=== PATIENT | male | born 1985 | race African-American/Black ===

== ENCOUNTER 2020-07-20 04:43 | Emergency (ER) | payer SELFPAY ==
[2020-07-20] MEDS ORDERED: TORAdol 30 mg Injection IM ONE (05:19)
[2020-07-20] MEDS ORDERED: OXYCODONE-ACETAMINOPHEN 10-325 PO STA (05:20)
[2020-07-20] MEDS ORDERED: TORAdol 30 mg Injection ONE (05:20)
[2020-07-20] MEDS ORDERED: OXYCODONE-ACETAMINOPHEN 10-325 ONE (05:21)
--- NOTE | 2020-07-20 05:27 | ERPHSYRPT ---
- History of Present Illness Time Seen by Provider: 07/20/20 05:11 Source: patient Exam Limitations: no limitations Patient Subjective Stated Complaint: pt states "I did some dumb shit and slipped on pavement." Triage Nursing Assessment: pt ambulated into the er; pt is axo x4; pt is thrashing around throwing himself around; c/o rt shoulder injury; pt states 10/10 pain; limited ROM to rt shoulder; no deformity present; good cap refill to RUE; strong radial pulse; pt states "it fells like something is poking around inside."; vitals wnl Physician History: 35 years old male presented in the ER with chief complaint of right shoulder pain after he slipped on pavement leading to fall onto right shoulder yesterday morning. Constant sharp shooting moderate to severe intensity pain with minimal movements, palpation around shoulder and partial relief with taking ibuprofen/being still. No numbness tingling or weakness in forearm/hand. Limited range of motion because of pain. No difficulty breathing or chest pain. No shortness of breath. Occurred: yesterday Method of Injury: fell Quality: sharpness Severity of Pain-Max: severe Severity of Pain-Current: moderate Extremities Pain Location: shoulder: right Modifying Factors: Worsens With: movement Associated Symptoms: none Allergies/Adverse Reactions: No Known Drug Allergies Allergy (Unverified 07/20/20 04:48) Hx Tetanus, Diphtheria Vaccination/Date Given: Yes Hx Influenza Vaccination/Date Given: Yes Hx Pneumococcal Vaccination/Date Given: Yes Immunizations Up to Date: Yes Travel Risk - International Travel Have you traveled outside of the country in past 3 weeks: No - Coronavirus Screening Are you exhibiting any of the following symptoms?: No Close contact with a COVID-19 positive Pt in past 14-21 Days: No - Vaccine Status Have you recieved a Covid-19 vaccination: No - Review of Systems Constitutional: No Symptoms Eyes: No Symptoms Ears, Nose, & Throat: No Symptoms Respiratory: No Symptoms Cardiac: No Symptoms Abdominal/Gastrointestinal: No Symptoms Genitourinary Symptoms: No Symptoms Musculoskeletal: Injury, Joint Pain Skin: No Symptoms Neurological: No Symptoms Psychological: No Symptoms Endocrine: No Symptoms Hematologic/Lymphatic: No Symptoms Immunological/Allergic: No Symptoms - Past Medical History Pertinent Past Medical History: No - Past Surgical History Past Surgical History: No - Social History Smoking Status: Current every day smoker Exposure to second hand smoke: Yes Drug Use: none Patient Lives Alone: No - Nursing Vital Signs Nursing Vital Signs: Initial Vital Signs Temperature 98.1 F 07/20/20 04:50 Pulse Rate 84 07/20/20 04:50 Respiratory Rate 20 07/20/20 04:50 Blood Pressure 124/87 07/20/20 04:50 O2 Sat by Pulse Oximetry 97 07/20/20 04:50 Pain Scale Pain Intensity 10 - Physical Exam General Appearance: no apparent distress, alert Eyes, Ears, Nose, Throat Exam: normal ENT inspection Neck Exam: normal inspection, non-tender, supple, full range of motion Cardiovascular/Respiratory Exam: chest non-tender, normal breath sounds, regular rate/rhythm Back Exam: normal inspection, normal range of motion Shoulder Exam: bone tenderness, limited ROM (Right shoulder because of pain.), pain, soft tissue tenderness, swelling Elbow/Forearm Exam: normal inspection, non-tender, no evidence of injury, normal ROM Wrist Exam: normal inspection, non-tender, no evidence of injury, normal ROM Hand Exam: normal inspection, non-tender Neuro/Tendon Exam: normal sensation, normal motor functions Mental Status Exam: alert, oriented x 3, cooperative Skin Exam: normal color SpO2 Interpretation: normal SpO2: 97 O2 Delivery: Room Air Ordered Tests: Medication Summary Discontinued Medications Generic Name Dose Route Start Last Admin Trade Name Zina PRN Reason Stop Dose Admin Ketorolac Tromethamine 30 mg 07/20/20 05:19 07/20/20 05:22 Toradol 30 Mg Injection IM 07/20/20 05:20 30 mg STAT ONE Administration Ketorolac Tromethamine Confirm 07/20/20 05:20 Toradol 30 Mg Injection Administered 07/20/20 05:21 Dose 30 mg .ROUTE .STK-MED ONE Oxycodone/Acetaminophen 1 tab 07/20/20 05:20 07/20/20 05:22 Oxycodone-Acetaminophen 10-325 PO 07/20/20 05:21 1 tab STAT STA Administration Oxycodone/Acetaminophen Confirm 07/20/20 05:21 Oxycodone-Acetaminophen 10-325 Administered 07/20/20 05:22 Dose 1 tab .ROUTE .STK-MED ONE - Progress Progress: improved Progress Note: 07/20/20 05:25 Given Toradol and Percocet for pain relief. No obvious fracture location noticed by me. Patient has intact passive range of motion. Intact distal neurovascular. I believe he has a sprain/contusion. Recommended NSAIDs, placed in a sling/immobilizer, recommended outpatient Ortho clinic follow-up. Counseled pt/family regarding: diagnosis, need for follow-up, rad results - Departure Departure Disposition: Home Clinical Impression: Acute pain of right shoulder due to trauma Condition: Stable Critical Care Time: No Referrals: DOCTOR,NO FAMILY [Primary Care Provider] - ORTHO - KAY BUTTS NP [NON-STAFF PHY W/O PRIVILEGES] - (1-2 days for reevaluation) Instructions: Shoulder Sprain (DC), Shoulder Fracture (DC) Additional Instructions: Take Tylenol/diclofenac for pain as needed. Follow-up with Ortho clinic for reevaluation. Return to ER for worsening pain/difficulty movement/difficulty breathing or chest pain. Prescriptions: Diclofenac Sodium 75 mg PO BID PRN 10 Days #20 tablet.dr ZAMORA Reason: Pain
[2020-07-20 05:37] VITALS: BP 121/73; PULSE 81
--- NOTE | 2020-07-20 08:58 | XRAY ---
Indication: Decreased range of motion following fall. Comparison: None 3 view right shoulder obtained. No bony, articular, or soft tissue abnormalities.
[2020-07-24 07:26] VITALS: O2SAT 97
== END 2020-07-20 05:44 | disposition home or self-care (01) ==
LOC: ED 04:43
DX: M25.511 Pain in right shoulder (principal); W01.198A Fall on same level from slipping, tripping and stumbling with subsequent striking against other object, initial encounter; Y93.89 Activity, other specified; Y92.488 Other paved roadways as the place of occurrence of the external cause; Y99.9 Unspecified external cause status
CPT/HCPCS: 73030; 96372; 99284; J1885; L3650; A9270-GY

== ENCOUNTER 2020-10-25 10:19 | Emergency (ER) | payer SELFPAY ==
[2020-10-25] MEDS ORDERED: Keppra 500 MG/5 ML ONE (10:28)
[2020-10-25] MEDS ORDERED: ZOFRAN ODT 4 MG PO ONE (10:30)
[2020-10-25] MEDS ORDERED: Sodium Chloride 0.9% 1000 ML 1,000 ML IV STA ×2 (10:30→12:39)
[2020-10-25] MEDS ORDERED: Keppra 500 MG/5 ML*** 1,000 MG in D5w 100ML Mini Bag 100 ML 100 ML IV ONE ×4 (10:30)
[2020-10-25] MEDS ORDERED: Ativan 2 MG/1 ML VIAL IV ONE (10:35)
[2020-10-25] MEDS ORDERED: Ativan 2 MG/1 ML VIAL ONE (10:36)
[2020-10-25 10:44] LABS: Absolute Neutrophil Ct (ANC) 3.52 (1.4-6.9); BASOPHIL % 0.4 % (0.0-0.4); Basophil (Absolute #) 0.02 (0-0.4); Eosinophil % 0.4 % (0.00-5.0); Eosinophil (Absolute #) 0.02 (0-0.5); Hematocrit 49.6 % (42-50); Hemoglobin 16.5 gm/dl (12.5-18.0); Lymphocyte (Absolute #) 1.08 (1.0-4.6); Lymphocytes % 21.9 % (24.0-44.0); Mean Cell Volume 98.2 fl (78-100); Mean Corpuscular Hemoglobin 32.7 pg (26-32); Mean Corpuscular Hgb Concent. 33.3 g/dl (32-36); Mean Platelet Volume 10.6 fl (7.5-11.0); Monocyte (Absolute #) 0.29 (0.0-1.3); Monocytes % 5.9 % (0.0-12.0); Neutrophil % 71.4 % (36.0-66.0); Platelet Count 157 K/mm3 (150-450); Red Blood Count 5.05 M/mm3 (4.1-5.6); Red Cell Distribution Width 14.3 % (11.5-14.0); White Blood Count 4.9 K/mm3 (4.0-10.5)
[2020-10-25 10:46] LABS: ALBUMIN 4.7 g/dL (3.5-5.0); ALKALINE PHOSPHATASE 111 U/L (38-126); ANION GAP 21.6 MEQ/L (5-15); BLOOD UREA NITROGEN 15 mg/dL (9-20); CHLORIDE 101 mmol/L (98-107); Calcium 9.5 mg/dL (8.4-10.2); Carbon Dioxide 22 mmol/L (22-30); Creatinine 1 0.95 mg/dL (0.66-1.25); EST GLOMERULAR FILTRATION RATE > 60.0 ML/MIN; Glucose 97 mg/dL (74-106); SGPT/ALT 453 U/L (0-50); SODIUM 140 mmol/L (137-145); Total Protein 8.4 g/dL (6.3-8.2)
[2020-10-25 10:51] LABS: SGOT/AST 809 U/L (17-59)
[2020-10-25] MEDS ORDERED: Zofran 4 MG/2 ML VIAL ONE (10:51)
[2020-10-25] MEDS ORDERED: Zofran 4 MG/2 ML VIAL IV STA (10:56)
[2020-10-25] MEDS ORDERED: Sodium Chloride 0.9% 1000 ML 1,000 ML ONE ×2 (10:58→12:48)
--- NOTE | 2020-10-25 12:55 | ERPHSYRPT ---
- History of Present Illness Time Seen by Provider: 10/25/20 10:30 Patient Subjective Stated Complaint: EMS states "He had a seizure and he does not have a history of them.". Pt states "I am not sure what happened to me." Triage Nursing Assessment: PT presented alert and oriented X 3, skin pwd. PT arrived via ambulance. Pt arrived with iv in place in left ac. PT stated he felt stiff. Pt trembling stating he is cold. Pt suddenly started to daze off and then stare straight ahead. Pt would not answer questions. this lasted approx 25 second. Physician History: 35 years old -[place] male with history of alcohol abuse is brought in the ER with chief complaint of seizure-like episode this morning. Patient does not have history of seizure. Per report patient was having shaking episode all over, lasted for couple minutes and improved. Patient is feeling confused tired afterwards and currently states she does not know why he is he getting stiff at times. While in the ER he is having some episodes of shaking but able to answer questions during that episode. Last drink was around midnight. Able to move all 4 extremities. Denies any chest pain, abdominal pain nausea or vomiting. No shortness of breath. Denies any headache. Denies any drug use. Timing/Duration: today, resolved prior to arrival Severity: moderate Deficits: no difficulties Baseline/Normal Cognition: alert oriented x 3 Current Cognition: alert oriented x 3 Baseline Gait: walks w/o assistance Associated Symptoms: fatigue, seizures Allergies/Adverse Reactions: No Known Drug Allergies Allergy (Verified 10/25/20 10:33) Home Medications: No Reportable Medications [No Reported Medications] 10/25/20 [History] Hx Tetanus, Diphtheria Vaccination/Date Given: Yes Hx Influenza Vaccination/Date Given: Yes Hx Pneumococcal Vaccination/Date Given: Yes Immunizations Up to Date: Yes Travel Risk - International Travel Have you traveled outside of the country in past 3 weeks: No (N) If Yes, where;: N - Coronavirus Screening Close contact with a COVID-19 positive Pt in past 14-21 Days: No - Vaccine Status Have you recieved a Covid-19 vaccination: No - Review of Systems Constitutional: Fatigue, Weakness Eyes: No Symptoms Ears, Nose, & Throat: No Symptoms Respiratory: No Symptoms Cardiac: No Symptoms Abdominal/Gastrointestinal: No Symptoms Genitourinary Symptoms: No Symptoms Musculoskeletal: Myalgias Skin: No Symptoms Neurological: Seizure Psychological: Alcohol Abuse, Anxiety Endocrine: No Symptoms Hematologic/Lymphatic: No Symptoms Immunological/Allergic: No Symptoms - Past Medical History Pertinent Past Medical History: No - Past Surgical History Past Surgical History: No - Social History Smoking Status: Current every day smoker How long have you smoked: 2 packs Exposure to second hand smoke: Yes Drug Use: none Patient Lives Alone: No - Nursing Vital Signs Nursing Vital Signs: Initial Vital Signs Temperature 97.5 F 10/25/20 10:20 Pulse Rate 93 H 10/25/20 10:20 Respiratory Rate 10/25/20 10:20 Blood Pressure 137/78 10/25/20 10:20 O2 Sat by Pulse Oximetry 98 10/25/20 10:20 Pain Scale Pain Intensity 0 - Sean Coma Scale Best Eye Response (Sean): (4) open spontaneously Best Verbal Response (Convoy): (5) oriented Best Motor Response (Convoy): (6) obeys commands Sean Total: 15 - Physical Exam General Appearance: no apparent distress, alert Eye Exam: bilateral eye: normal inspection, PERRL, EOMI Ears, Nose, Throat Exam: normal ENT inspection, TMs normal, moist mucous membranes Neck Exam: normal inspection, non-tender, supple, full range of motion Respiratory: normal breath sounds, lungs clear Cardiovascular: regular rate/rhythm, normal heart sounds Gastrointestinal: soft, normal bowel sounds, No tenderness Back Exam: normal inspection, normal range of motion Extremity Exam: normal inspection, normal range of motion, pelvis stable Mental Status: alert, oriented x 3, 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 Exam: normal hearing, normal speech, PERRL Coordination/Gait: normal finger to nose, normal cerebellar function Motor/Sensory: no motor deficit, no sensory deficit, no pronator drift, negative Babinski's sign DTR: bicep (R): 2+, bicep (L): 2+, knee (R): 2+, knee (L): 2+ Skin Exam: normal color SpO2 Interpretation: normal SpO2: 97 O2 Delivery: Room Air - Course EKG Interpreted by Me: RATE (83), Sinus Rhythm, NORMAL AXIS, NORMAL INTERVALS, Non-specific ST Changes Ordered Tests: Active Orders 24 hr Category Date Time Status AMA [Release AMA] OM.NOW Care 10/25/20 14:37 Active Surgery Attendant STAT Care 10/25/20 10:31 Active EKG-ER Only STAT Care 10/25/20 10:30 Active IV Insertion STAT Care 10/25/20 10:30 Active NPO (ED) STAT Care 10/25/20 10:30 Active POCT Glucose Check STAT Care 10/25/20 10:30 Active Pulse Oximetry (ED) STAT Care 10/25/20 10:30 Active Seizure Precautions -SCCHED STAT Care 10/25/20 10:30 Active CHEST 1 VIEW (PORTABLE) Stat Exams 10/25/20 10:31 Taken HEAD WITHOUT CONTRAST [CT] Stat Exams 10/25/20 10:31 Taken BLOOD CULTURE Stat Lab 10/25/20 10:45 Received CBC W DIFF Stat Lab 10/25/20 10:30 Completed CK (IN-HOUSE) [CK-Creatinine Phosphokinase] Stat Lab 10/25/20 10:30 Completed CMP Stat Lab 10/25/20 10:30 Completed ETHYL ALCOHOL Stat Lab 10/25/20 10:30 Completed Lactic Acid Stat Lab 10/25/20 10:45 Completed Lactic Acid Stat Lab 10/25/20 12:49 Completed MAGNESIUM Stat Lab 10/25/20 10:30 Completed TROPONIN Q3H Lab 10/25/20 10:30 Completed TROPONIN Q3H Lab 10/25/20 13:35 Received TROPONIN Q3H Lab 10/25/20 16:45 Ordered TROPONIN Q3H Lab 10/25/20 19:45 Ordered TROPONIN Q3H Lab 10/25/20 22:45 Ordered UA W/RFX UR CULTURE Stat Lab 10/25/20 10:30 Ordered Urine Triage Profile Stat Lab 10/25/20 10:30 Ordered Medication Summary Discontinued Medications Generic Name Dose Route Start Last Admin Trade Name Freq PRN Reason Stop Dose Admin Levetiracetam 1,000 mg/ 110 mls @ 220 mls/hr 10/25/20 10:30 10/25/20 10:30 Dextrose IV 10/25/20 10:59 220 mls/hr STAT ONE Administration Sodium Chloride 1,000 mls @ 999 mls/hr 10/25/20 10:30 10/25/20 12:06 Sodium Chloride 0.9% 1000 Ml IV 10/25/20 11:30 Infused .Q1H1M STA Infusion Levetiracetam 1,000 mg/ 110 mls @ 400 mls/hr 10/25/20 10:30 10/25/20 11:39 Dextrose IV 10/25/20 10:46 Not Given STAT ONE Sodium Chloride Confirm 10/25/20 10:58 Sodium Chloride 0.9% 1000 Ml Administered 10/25/20 10:59 Dose 1,000 mls @ ud .ROUTE .STK-MED ONE Sodium Chloride 1,000 mls @ 999 mls/hr 10/25/20 12:39 10/25/20 13:53 Sodium Chloride 0.9% 1000 Ml IV 10/25/20 13:39 Infused .Q1H1M STA Infusion Sodium Chloride Confirm 10/25/20 12:48 Sodium Chloride 0.9% 1000 Ml Administered 10/25/20 12:49 Dose 1,000 mls @ ud .ROUTE .STK-MED ONE Levetiracetam Confirm 10/25/20 10:28 Keppra 500 Mg/5 Ml Administered 10/25/20 10:29 Dose 1,000 mg .ROUTE .STK-MED ONE Lorazepam 1 mg 10/25/20 10:35 10/25/20 10:42 Ativan 2 Mg/1 Ml Vial IV 10/25/20 10:36 1 mg STAT ONE Administration Lorazepam Confirm 10/25/20 10:36 Ativan 2 Mg/1 Ml Vial Administered 10/25/20 10:37 Dose 2 mg .ROUTE .STK-MED ONE Ondansetron HCl 4 mg 10/25/20 10:30 10/25/20 10:55 Zofran Odt 4 Mg PO 10/25/20 10:31 Not Given STAT ONE Ondansetron HCl Confirm 10/25/20 10:51 Zofran 4 Mg/2 Ml Vial Administered 10/25/20 10:52 Dose 4 mg .ROUTE .STK-MED ONE Ondansetron HCl 4 mg 10/25/20 10:56 10/25/20 10:57 Zofran 4 Mg/2 Ml Vial IV 10/25/20 10:57 4 mg STAT STA Administration Lab/Rad Data: Laboratory Result Diagrams 10/25/20 10:30 10/25/20 10:30 Laboratory Results 10/25/20 10/25/20 10/25/20 Range/Units 12:49 10:45 10:30 WBC (4.0-10.5) K/mm3 RBC (4.1-5.6) M/mm3 Hgb (12.5-18.0) gm/dl Hct (42-50) % MCV (78-100) fl MCH (26-32) pg MCHC (32-36) g/dl RDW (11.5-14.0) % Plt Count (150-450) K/mm3 MPV (7.5-11.0) fl Gran % (36.0-66.0) % Eos # (Auto) (0-0.5) Absolute Lymphs (auto) (1.0-4.6) Absolute Monos (auto) (0.0-1.3) Lymphocytes % (24.0-44.0) % Monocytes % (0.0-12.0) % Eosinophils % (0.00-5.0) % Basophils % (0.0-0.4) % Absolute Granulocytes (1.4-6.9) Basophils # (0-0.4) Sodium (137-145) mmol/L Potassium (3.5-5.1) mmol/L Chloride (98-107) mmol/L Carbon Dioxide (22-30) mmol/L Anion Gap (5-15) MEQ/L BUN (9-20) mg/dL Creatinine (0.66-1.25) mg/dL Estimated GFR ML/MIN Glucose (74-106) mg/dL Lactic Acid 2.0 4.2 H (0.4-2.0) Calcium (8.4-10.2) mg/dL Magnesium (1.6-2.3) mg/dL Total Bilirubin (0.2-1.3) mg/dL AST (17-59) U/L ALT (0-50) U/L Alkaline Phosphatase (38-126) U/L Creatine Kinase 219 H (55-170) U/L Troponin I (0.000-0.034) ng/mL Serum Total Protein (6.3-8.2) g/dL Albumin (3.5-5.0) g/dL Ethyl Alcohol (0-10) mg/dL 10/25/20 10/25/20 10/25/20 Range/Units 10:30 10:30 10:30 WBC (4.0-10.5) K/mm3 RBC (4.1-5.6) M/mm3 Hgb (12.5-18.0) gm/dl Hct (42-50) % MCV (78-100) fl MCH (26-32) pg MCHC (32-36) g/dl RDW (11.5-14.0) % Plt Count (150-450) K/mm3 MPV (7.5-11.0) fl Gran % (36.0-66.0) % Eos # (Auto) (0-0.5) Absolute Lymphs (auto) (1.0-4.6) Absolute Monos (auto) (0.0-1.3) Lymphocytes % (24.0-44.0) % Monocytes % (0.0-12.0) % Eosinophils % (0.00-5.0) % Basophils % (0.0-0.4) % Absolute Granulocytes (1.4-6.9) Basophils # (0-0.4) Sodium (137-145) mmol/L Potassium (3.5-5.1) mmol/L Chloride (98-107) mmol/L Carbon Dioxide (22-30) mmol/L Anion Gap (5-15) MEQ/L BUN (9-20) mg/dL Creatinine (0.66-1.25) mg/dL Estimated GFR ML/MIN Glucose (74-106) mg/dL Lactic Acid (0.4-2.0) Calcium (8.4-10.2) mg/dL Magnesium 1.6 (1.6-2.3) mg/dL Total Bilirubin (0.2-1.3) mg/dL AST (17-59) U/L ALT (0-50) U/L Alkaline Phosphatase (38-126) U/L Creatine Kinase (55-170) U/L Troponin I < 0.012 (0.000-0.034) ng/mL Serum Total Protein (6.3-8.2) g/dL Albumin (3.5-5.0) g/dL Ethyl Alcohol 68 H (0-10) mg/dL 10/25/20 10/25/20 Range/Units 10:30 10:30 WBC 4.9 (4.0-10.5) K/mm3 RBC 5.05 (4.1-5.6) M/mm3 Hgb 16.5 (12.5-18.0) gm/dl Hct 49.6 (42-50) % MCV 98.2 (78-100) fl MCH 32.7 H (26-32) pg MCHC 33.3 (32-36) g/dl RDW 14.3 H (11.5-14.0) % Plt Count 157 (150-450) K/mm3 MPV 10.6 (7.5-11.0) fl Gran % 71.4 H (36.0-66.0) % Eos # (Auto) 0.02 (0-0.5) Absolute Lymphs (auto) 1.08 (1.0-4.6) Absolute Monos (auto) 0.29 (0.0-1.3) Lymphocytes % 21.9 L (24.0-44.0) % Monocytes % 5.9 (0.0-12.0) % Eosinophils % 0.4 (0.00-5.0) % Basophils % 0.4 (0.0-0.4) % Absolute Granulocytes 3.52 (1.4-6.9) Basophils # 0.02 (0-0.4) Sodium 140 (137-145) mmol/L Potassium 4.0 (3.5-5.1) mmol/L Chloride 101 (98-107) mmol/L Carbon Dioxide 22 (22-30) mmol/L Anion Gap 21.6 H (5-15) MEQ/L BUN 15 (9-20) mg/dL Creatinine 0.95 (0.66-1.25) mg/dL Estimated GFR > 60.0 ML/MIN Glucose 97 (74-106) mg/dL Lactic Acid (0.4-2.0) Calcium 9.5 (8.4-10.2) mg/dL Magnesium (1.6-2.3) mg/dL Total Bilirubin 1.00 (0.2-1.3) mg/dL AST 809 H (17-59) U/L ALT 453 H (0-50) U/L Alkaline Phosphatase 111 (38-126) U/L Creatine Kinase (55-170) U/L Troponin I (0.000-0.034) ng/mL Serum Total Protein 8.4 H (6.3-8.2) g/dL Albumin 4.7 (3.5-5.0) g/dL Ethyl Alcohol (0-10) mg/dL - Progress Progress: improved Progress Note: 10/25/20 14:49 35 years old is evaluated for seizure episode at home. Was having some stiffening movement while in the ER but patient was awake alert and talking during episode. Given a loading dose of Keppra and fluid boluses. Initial work-up showed normal white count, renal functions but does have elevated lactate of 4.2 which improved after fluids to 2.0 and mildly elevated CK which are probably secondary to seizure episode earlier. Patient alcohol is 68 and is a heavy drinker. CT head is negative for any acute findings. Chest x-ray did not appreciate she had any acute cardiopulmonary findings reviewed by me. [facility] neurology consult is obtained, recommended MRI/EEG, admission to telemetry and frequent neuro checks and holding off on antiepileptic for now as patient does have some precipitating factor for seizure-like drug use/alcohol but if has any organic lesion in the MRI or EEG changes are another episode of seizure would be started on antiepileptic Keppra 500 twice daily. I have discussed neurology recommendation with patient who understand but does not want to stay in the hospital at all. 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 I have discussed in detail about the need for full work-up MRI EEG and monitoring and leaving AMA would delay the diagnosis and also could have worsening of condition like status epilepticus R any other pulmonary or neurological damage which he understand but does not want to stay. Patient is awake alert and oriented, not in any distress confused or altered at all. RN was present during this whole conversation. Recommended not to drive are around heavy missionary are around water alone until cleared by his primary/neurology patient did admit that he will follow up with them. Discussed with : Other Counseled pt/family regarding: lab results, diagnosis, need for follow-up, rad results, smoking cessation - Departure Departure Disposition: AMA Clinical Impression: New onset seizure, Lactic acidosis, Elevated liver transaminase level, Alcohol abuse Condition: Stable Critical Care Time: No Referrals: DOCTOR,NO FAMILY [Primary Care Provider] - ERWIN DUPREE MD [ACTIVE STAFF] - (Call tomorrow for appointment and re evaluation) RAQUEL TREVIZO [NON-STAFF PHY W/O PRIVILEGES] - (Call tomorrow for appointment and reevaluation) Instructions: Seizures, Adult (DC) Additional Instructions: Cut down on your alcohol. Do not use any drugs. Should not be driving or operating heavy machinery until cleared by your primary care/neurologist. Return to ER if again have seizures, worsening headache, numbness tingling focal weakness, difficulty speech or vision.
[2020-10-25 14:10] VITALS: BP 118/72
[2020-10-25 14:37] VITALS: PULSE 91
[2020-10-25 14:49] VITALS: O2SAT 97
--- NOTE | 2020-10-25 17:35 | XRAY ---
Indication: New onset seizure. Comparison: None Portable chest demonstrates normal heart, lungs, and bony thorax.
--- NOTE | 2020-10-25 17:45 | XRAY ---
Indication: Seizure. Multiple contiguous images obtained through the head without contrast. Comparison: None. Normal appearing brain parenchyma, ventricles, and bony calvarium. Visualized paranasal sinuses and mastoid air cells are clear. Impression: Normal CT head without contrast exam. Comment: Preliminary interpretation made by [facility]. No critical discrepancy.
== END 2020-10-25 14:52 | disposition left against medical advice (07) ==
LOC: ED 10:19
DX: R56.9 Unspecified convulsions (principal); E87.2 Acidosis; R74.01 Elevation of levels of liver transaminase levels; F10.10 Alcohol abuse, uncomplicated; R53.83 Other fatigue
CPT/HCPCS: 36415; 70450; 71045; 80053; 80307; 82550; 83605; 83735; 84484; 85025; 87040; 93005; 93041; 94760; 96360; 96374; 96375; 99285; J1953; J2060; J2405; G0480

== ENCOUNTER 2020-10-26 12:21 | Emergency (ER) | payer MEDICAID ==
[2020-10-26 12:33] VITALS: O2SAT 98
[2020-10-26] MEDS ORDERED: Sodium Chloride 0.9% 1000 ML 1,000 ML IV STA (12:38)
[2020-10-26 12:52] LABS: Absolute Neutrophil Ct (ANC) 1.13 (1.4-6.9); BASOPHIL % 0.4 % (0.0-0.4); Basophil (Absolute #) 0.01 (0-0.4); Eosinophil % 2.6 % (0.00-5.0); Eosinophil (Absolute #) 0.07 (0-0.5); Hematocrit 43.2 % (42-50); Lymphocyte (Absolute #) 1.21 (1.0-4.6); Lymphocytes % 44.2 % (24.0-44.0); Mean Cell Volume 96.2 fl (78-100); Mean Corpuscular Hemoglobin 33.4 pg (26-32); Mean Corpuscular Hgb Concent. 34.7 g/dl (32-36); Mean Platelet Volume 11.2 fl (7.5-11.0); Monocyte (Absolute #) 0.32 (0.0-1.3); Monocytes % 11.7 % (0.0-12.0); Neutrophil % 41.1 % (36.0-66.0); Platelet Count 126 K/mm3 (150-450); Red Blood Count 4.49 M/mm3 (4.1-5.6); White Blood Count 2.7 K/mm3 (4.0-10.5)
[2020-10-26 13:15] LABS: ALBUMIN 4.3 g/dL (3.5-5.0); ALKALINE PHOSPHATASE 93 U/L (38-126); ANION GAP 15.7 MEQ/L (5-15); BLOOD UREA NITROGEN 12 mg/dL (9-20); CHLORIDE 102 mmol/L (98-107); Calcium 9.2 mg/dL (8.4-10.2); Carbon Dioxide 24 mmol/L (22-30); EST GLOMERULAR FILTRATION RATE > 60.0 ML/MIN; ETHYL ALCOHOL 51 mg/dL (0-10); Glucose 95 mg/dL (74-106); SGOT/AST 359 U/L (17-59); SGPT/ALT 323 U/L (0-50); SODIUM 138 mmol/L (137-145); Total Protein 7.7 g/dL (6.3-8.2)
[2020-10-26] MEDS ORDERED: Sodium Chloride 0.9% 1000 ML 0 ML ONE (13:15)
--- NOTE | 2020-10-26 13:16 | XRAY ---
Indication: New onset seizure. Multiple contiguous axial images obtained through the head without contrast. Comparison: One day earlier. Normal appearing brain parenchyma, ventricles, and bony calvarium. Visualized paranasal sinuses and mastoid air cells are clear. Impression: Continued normal CT head without contrast exam.
--- NOTE | 2020-10-26 13:18 | XRAY ---
Indication: New onset seizure. Neck pain. Multiple contiguous axial images obtained through the cervical spine. Sagittal and coronal reformatted images obtained. Comparison: None. 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 Remaining axial images negative for acute fracture, suspicious bony lesions, or spinal canal stenosis. Sagittal and coronal reformatted images demonstrates normal alignment with vertebral body heights/disc spaces maintained. No acute compression fracture, subluxation, or jumped facet. Normal appearing craniocervical junction. Visualized noncontrasted soft tissues including lung apices are unremarkable. Impression: Anatomic variant nonunited posterior arch C1. Remaining CT cervical spine normal.
[2020-10-26 13:33] VITALS: BP 132/78; PULSE 78
== END 2020-10-26 13:36 | disposition left against medical advice (07) ==
LOC: ED 12:21
DX: R56.9 Unspecified convulsions (principal); W19.XXXA Unspecified fall, initial encounter; F10.10 Alcohol abuse, uncomplicated
CPT/HCPCS: 36000; 36415; 70450; 72125; 80053; 80307; 84484; 85025; 99284; G0480

== ENCOUNTER 2021-05-11 17:16 | Emergency (ER) | payer MEDICAID, OTHER ==
[2021-05-11] MEDS ORDERED: Zofran 4 MG/2 ML VIAL ONE (17:58)
[2021-05-11] MEDS ORDERED: Sodium Chloride 0.9% 1000 ML 1,000 ML ONE (17:58)
[2021-05-11] MEDS: Sodium Chloride 0.9% 1000 ML 1,000 ML IV STA (18:02)
[2021-05-11] MEDS: Zofran 4 MG/2 ML VIAL IV ONE (18:02)
--- NOTE | 2021-05-11 18:04 | ERPHSYRPT ---
- History of Present Illness Time Seen by Provider: 05/11/21 17:30 Source: patient Exam Limitations: no limitations Patient Subjective Stated Complaint: " I'm hurting all over. I'm so weak. I've been puking all day. I can't keep anything down." Triage Nursing Assessment: Pt presents to ER with complaints of vomiting and abdominal pain. Pt is alert and oriented x 3. Pt respirations easy. Pt appears weak and to be in pain. Pt is able to ambulate in small shuffle, short distances. Pt states he has vomited approx 20 times today. States his was recently around someone with the flu. Hx of alcoholism but has been sober since November. Pt has tenderness noted to abdomen. Pt complains of chills and fatigue. Physician History: Patient is a 36-year-old male presents to our ED with complaints of nausea vomiting and generalized body aches. Patient states he vomited 20 times today. Symptoms started yesterday. Patient states his was exposed to someone with the flu but she herself does not have symptoms. Patient complains of generalized abdominal pain particularly when he vomits. Patient states when he vomits he also has some low back pain as well. No trauma. No fever. Patient states he feels weak. Patient has a history of alcoholism however has not had any alcohol since November. Timing/Duration: yesterday Severity: moderate Modifying Factors: Improves With: nothing Associated Symptoms: abdominal pain, No fever, No seizure Allergies/Adverse Reactions: No Known Drug Allergies Allergy (Verified 05/11/21 17:28) Home Medications: Aripiprazole 10 mg [Abilify 10 MG] 10 mg PO DAILY 05/11/21 [History] Hx Tetanus, Diphtheria Vaccination/Date Given: Yes Hx Influenza Vaccination/Date Given: Yes Hx Pneumococcal Vaccination/Date Given: No Immunizations Up to Date: Yes Travel Risk - International Travel Have you traveled outside of the country in past 3 weeks: No - Coronavirus Screening Are you exhibiting any of the following symptoms?: Yes Symptoms: Vomiting/Diarrhea - Vaccine Status Have you recieved a Covid-19 vaccination: Yes 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[employer] - Review of Systems Constitutional: No Symptoms, No Fever, No Chills Eyes: No Symptoms Ears, Nose, & Throat: No Symptoms Respiratory: No Symptoms, No Cough, No Dyspnea Cardiac: No Symptoms, No Chest Pain, No Edema, No Syncope Abdominal/Gastrointestinal: No Symptoms, No Abdominal Pain, No Nausea, No Vomiting, No Diarrhea Genitourinary Symptoms: No Symptoms, No Dysuria Musculoskeletal: No Symptoms, No Back Pain, No Neck Pain Skin: No Symptoms, No Rash Neurological: No Symptoms, No Dizziness, No Focal Weakness, No Sensory Changes Psychological: No Symptoms Endocrine: No Symptoms Hematologic/Lymphatic: No Symptoms Immunological/Allergic: No Symptoms All Other Systems: Reviewed and Negative - Past Medical History Pertinent Past Medical History: Yes Psycho-Social History: Anxiety - Past Surgical History Past Surgical History: No - Social History Smoking Status: Current every day smoker How long have you smoked: 2 packs Exposure to second hand smoke: No Drug Use: none Patient Lives Alone: No - Nursing Vital Signs Nursing Vital Signs: Initial Vital Signs Temperature 98.2 F 05/11/21 17:23 Pulse Rate 94 H 05/11/21 17:23 Respiratory Rate 18 05/11/21 17:23 Blood Pressure 131/84 05/11/21 17:23 O2 Sat by Pulse Oximetry 98 05/11/21 17:23 Pain Scale Pain Intensity 8 - Physical Exam General Appearance: no apparent distress, alert Eye Exam: PERRL/EOMI, eyes nml inspection Ears, Nose, Throat Exam: normal ENT inspection, TMs normal, pharynx normal, moist mucous membranes Neck Exam: normal inspection, non-tender, supple, full range of motion Respiratory Exam: normal breath sounds, lungs clear, airway intact, No respiratory distress Cardiovascular Exam: regular rate/rhythm, normal heart sounds, normal peripheral pulses Gastrointestinal/Abdomen Exam: soft, normal bowel sounds, No tenderness, No mass Back Exam: normal inspection, normal range of motion, No CVA tenderness, No vertebral tenderness Extremity Exam: normal inspection, normal range of motion, pelvis stable Neurologic Exam: alert, oriented x 3, cooperative, normal mood/affect, nml cerebellar function, nml station & gait, sensation nml, No motor deficits Skin Exam: normal color, warm, dry, No rash Lymphatic Exam: No adenopathy SpO2 Interpretation: normal SpO2: 99 O2 Delivery: Room Air - Course Nursing assessment & vital signs reviewed: Yes - CT Exams Abdomen/Pelvis CT Interpretation: Tele-radiologist Report (No comps. Normal appendix. Mild diffuse fecal stasis. 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 05/11/21 17:47 Active IV Insertion STAT Care 05/11/21 17:47 Active Pulse Oximetry (ED) STAT Care 05/11/21 17:47 Active ABDOMEN AND PELVIS W CONTRAST [CT] Stat Exams 05/11/21 19:02 Taken CBC W DIFF Stat Lab 05/11/21 14:00 Completed CMP Stat Lab 05/11/21 14:00 Completed INFLUENZA A+B TRINITY Stat Lab 05/11/21 18:15 Completed LIPASE Stat Lab 05/11/21 18:10 Completed UA W/RFX UR CULTURE Stat Lab 05/11/21 17:58 Ordered Medication Summary Discontinued Medications Generic Name Dose Route Start Last Admin Trade Name Freq PRN Reason Stop Dose Admin Sodium Chloride 1,000 mls @ 999 mls/hr 05/11/21 17:47 05/11/21 19:29 Sodium Chloride 0.9% 1000 Ml IV 05/11/21 18:47 Infused .Q1H1M STA Infusion Sodium Chloride Confirm 05/11/21 17:58 Sodium Chloride 0.9% 1000 Ml Administered 05/11/21 17:59 Dose 1,000 mls @ ud .ROUTE .STK-MED ONE Ketorolac Tromethamine 30 mg 05/11/21 18:35 05/11/21 18:46 Ketorolac Tromethamine 30 Mg/Ml Inj IM 05/11/21 18:36 Not Given STAT ONE Ketorolac Tromethamine Confirm 05/11/21 18:42 Ketorolac Tromethamine 30 Mg/Ml Inj Administered 05/11/21 18:43 Dose 30 mg .ROUTE .STK-MED ONE Ketorolac Tromethamine 30 mg 05/11/21 18:46 05/11/21 18:47 Ketorolac Tromethamine 30 Mg/Ml Inj IV 05/11/21 18:47 30 mg STAT ONE Administration Ondansetron HCl 4 mg 05/11/21 17:48 05/11/21 18:02 Ondansetron Hcl 4 Mg/2 Ml Vial IV 05/11/21 17:49 4 mg STAT ONE Administration Ondansetron HCl Confirm 05/11/21 17:58 Ondansetron Hcl 4 Mg/2 Ml Vial Administered 05/11/21 17:59 Dose 4 mg .ROUTE .STK-MED ONE Lab/Rad Data: Laboratory Result Diagrams 05/11/21 14:00 05/11/21 14:00 Laboratory Results 05/11/21 05/11/21 05/11/21 Range/Units 18:15 18:10 14:00 WBC (4.0-10.5) K/mm3 RBC (4.1-5.6) M/mm3 Hgb (12.5-18.0) gm/dl Hct (42-50) % MCV (78-100) fl MCH (26-32) pg MCHC (32-36) g/dl RDW (11.5-14.0) % Plt Count (150-450) K/mm3 MPV (7.5-11.0) fl Gran % (36.0-66.0) % Eos # (Auto) (0-0.5) Absolute Lymphs (auto) (1.0-4.6) Absolute Monos (auto) (0.0-1.3) Lymphocytes % (24.0-44.0) % Monocytes % (0.0-12.0) % Eosinophils % (0.00-5.0) % Basophils % (0.0-0.4) % Absolute Granulocytes (1.4-6.9) Basophils # (0-0.4) Sodium 139 (137-145) mmol/L Potassium 4.5 (3.5-5.1) mmol/L Chloride 107 (98-107) mmol/L Carbon Dioxide 21 L (22-30) mmol/L Anion Gap 16.2 H (5-15) MEQ/L BUN 10 (9-20) mg/dL Creatinine 0.85 (0.66-1.25) mg/dL Estimated GFR > 60.0 ML/MIN Glucose 93 (74-106) mg/dL Calcium 9.6 (8.4-10.2) mg/dL Total Bilirubin 0.70 (0.2-1.3) mg/dL AST 65 H (17-59) U/L ALT 64 H (0-50) U/L Alkaline Phosphatase 73 (38-126) U/L Serum Total Protein 8.3 H (6.3-8.2) g/dL Albumin 4.5 (3.5-5.0) g/dL Lipase 47 (23-300) U/L Influenza Type A Ag NEGATIVE (NEGATIVE) Influenza Type B Ag NEGATIVE (NEGATIVE) 05/11/21 Range/Units 14:00 WBC 4.4 (4.0-10.5) K/mm3 RBC 5.37 (4.1-5.6) M/mm3 Hgb 16.7 (12.5-18.0) gm/dl Hct 50.4 H (42-50) % MCV 93.9 (78-100) fl MCH 31.1 (26-32) pg MCHC 33.1 (32-36) g/dl RDW 12.7 (11.5-14.0) % Plt Count 176 (150-450) K/mm3 MPV 10.4 (7.5-11.0) fl Gran % 69.1 H (36.0-66.0) % Eos # (Auto) 0.03 (0-0.5) Absolute Lymphs (auto) 1.07 (1.0-4.6) Absolute Monos (auto) 0.22 (0.0-1.3) Lymphocytes % 24.6 (24.0-44.0) % Monocytes % 5.1 (0.0-12.0) % Eosinophils % 0.7 (0.00-5.0) % Basophils % 0.5 (0.0-0.4) % Absolute Granulocytes 3.01 (1.4-6.9) Basophils # 0.02 (0-0.4) Sodium (137-145) mmol/L Potassium (3.5-5.1) mmol/L Chloride (98-107) mmol/L Carbon Dioxide (22-30) mmol/L Anion Gap (5-15) MEQ/L BUN (9-20) mg/dL Creatinine (0.66-1.25) mg/dL Estimated GFR ML/MIN Glucose (74-106) mg/dL Calcium (8.4-10.2) mg/dL Total Bilirubin (0.2-1.3) mg/dL AST (17-59) U/L ALT (0-50) U/L Alkaline Phosphatase (38-126) U/L Serum Total Protein (6.3-8.2) g/dL Albumin (3.5-5.0) g/dL Lipase (23-300) U/L Influenza Type A Ag (NEGATIVE) Influenza Type B Ag (NEGATIVE) - Progress Progress: improved Progress Note: During my physical exam patient was angry. Patient questioned why I was asked in particular questions. After treatment patient states he felt much better. CT scan ordered due to complaints of abdominal pain. Patient symptoms improved. Patient did obtain a CT scan however patient left AGAINST MEDICAL ADVICE prior to obtaining the CT scan report. Patient left the emergency department before I could further discuss findings and reassess his symptoms. Patient is of sound mind. Patient is appropriate to make informed and independent medical decisions. Patient understands that leaving AGAINST MEDICAL ADVICE can result in delayed diagnosis, increased risk of morbidity, mortality, short and long-term disability including . In spite of these risks, patient has decided to leave AGAINST MEDICAL ADVICE. Patient understands that he/she may return to our ED at any point if he reconsiders. Patient agrees to follow-up with his primary care doctor within 48 hours for reevaluation. Patient voices no other complaints or concerns at this time. We will release patient AGAINST MEDICAL ADVICE per their request. Portions of this note were created with voice recognition technology. There may be grammatical, spelling, punctuation or sound alike errors 05/11/21 20:27 Counseled pt/family regarding: lab results, diagnosis - Departure Departure Disposition: AMA Clinical Impression: Nausea & vomiting, Abdominal pain, Back pain, Fecal stasis Condition: Stable Critical Care Time: No Referrals: DOCTOR,NO FAMILY [NON-STAFF PHY W/O PRIVILEGES] - Follow up/PCP as directed
[2021-05-11 18:18] LABS: Absolute Neutrophil Ct (ANC) 3.01 (1.4-6.9); Basophil (Absolute #) 0.02 (0-0.4); Eosinophil % 0.7 % (0.00-5.0); Eosinophil (Absolute #) 0.03 (0-0.5); Hematocrit 50.4 % (42-50); Hemoglobin 16.7 gm/dl (12.5-18.0); Lymphocyte (Absolute #) 1.07 (1.0-4.6); Lymphocytes % 24.6 % (24.0-44.0); Mean Cell Volume 93.9 fl (78-100); Mean Corpuscular Hemoglobin 31.1 pg (26-32); Mean Corpuscular Hgb Concent. 33.1 g/dl (32-36); Mean Platelet Volume 10.4 fl (7.5-11.0); Monocyte (Absolute #) 0.22 (0.0-1.3); Monocytes % 5.1 % (0.0-12.0); Neutrophil % 69.1 % (36.0-66.0); Platelet Count 176 K/mm3 (150-450); Red Blood Count 5.37 M/mm3 (4.1-5.6); Red Cell Distribution Width 12.7 % (11.5-14.0); White Blood Count 4.4 K/mm3 (4.0-10.5)
[2021-05-11 18:24] LABS: ALBUMIN 4.5 g/dL (3.5-5.0); ALKALINE PHOSPHATASE 73 U/L (38-126); ANION GAP 16.2 MEQ/L (5-15); BLOOD UREA NITROGEN 10 mg/dL (9-20); CHLORIDE 107 mmol/L (98-107); Calcium 9.6 mg/dL (8.4-10.2); Carbon Dioxide 21 mmol/L (22-30); Creatinine 1 0.85 mg/dL (0.66-1.25); EST GLOMERULAR FILTRATION RATE > 60.0 ML/MIN; Glucose 93 mg/dL (74-106); Potassium 4.5 mmol/L (3.5-5.1); SGOT/AST 65 U/L (17-59); SGPT/ALT 64 U/L (0-50); SODIUM 139 mmol/L (137-145); Total Protein 8.3 g/dL (6.3-8.2)
[2021-05-11 18:32] LABS: INFLUENZA A NEGATIVE (NEGATIVE); INFLUENZA B NEGATIVE (NEGATIVE)
[2021-05-11] MEDS ORDERED: TORAdol 30 mg Injection ONE (18:42)
[2021-05-11] MEDS: TORAdol 30 mg Injection IM ONE (18:46)
[2021-05-11] MEDS: TORAdol 30 mg Injection IV ONE (18:47)
[2021-05-11 19:28] VITALS: BP 117/76; PULSE 82
[2021-05-11 20:32] VITALS: O2SAT 99
--- NOTE | 2021-05-12 08:31 | XRAY ---
Indication: Right abdomen/back/sacral pain. Difficulty urinating. Nausea and vomiting. Multiple contiguous axial images obtained through the abdomen and pelvis using 80 cc Isovue 370 contrast. Comparison: None Lung bases clear. Heart not enlarged. Noncontrasted stomach and bowel loops appear nonobstructed. Normal air-filled appendix. Mild scattered colonic fecal debris throughout. No free fluid/air. Remaining liver, gallbladder, pancreas, spleen, adrenal glands, kidneys, ureters, bladder, and aorta appear unremarkable. No pathologic retroperitoneal lymphadenopathy. Osseous structures intact. No ventral or inguinal hernias. Impression: Mild fecal stasis. Remaining CT abdomen/pelvis with contrast exam is negative.
== END 2021-05-11 20:28 | disposition left against medical advice (07) ==
LOC: ED 17:16
DX: R11.2 Nausea with vomiting, unspecified (principal); K59.89 Other specified functional intestinal disorders; R10.84 Generalized abdominal pain; M54.50 Low back pain, unspecified; R53.1 Weakness; Z72.0 Tobacco use
CPT/HCPCS: 36000; 36415; 74177; 80053; 83690; 85025; 87400; 93041; 94760; 96360; 96374; 96375; 99284; J1885; J2405

== ENCOUNTER 2021-07-15 06:42 | Emergency (ER) | payer OTHER ==
[2021-07-15 07:00] VITALS: PULSE 87; O2SAT 98
[2021-07-15] MEDS ORDERED: KEFLEX 500 MG PO ONE (07:40)
[2021-07-15] MEDS ORDERED: KEFLEX 500 MG ONE (07:44)
[2021-07-15 08:16] VITALS: BP 129/77
--- NOTE | 2021-07-15 08:16 | ERPHSYRPT ---
- History of Present Illness Time Seen by Provider: 07/15/21 07:25 Source: patient Exam Limitations: no limitations Patient Subjective Stated Complaint: C/O laceration to right hand. States he was at work and standing to the side of a machine when something shot out of the machine and cut open his hand. This happened just before he came into the ED this morning. Triage Nursing Assessment: Patient ambulated back to ED with a towel wrapped around his right hand. Lacerations noted to right hand 4th digit and right hand 5th digit that extends down into the area between the 4th and 5th digit. 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 Having difficulty movements of finger in all direction because of pain and inability to move. Tingling sensation in the fingertip. Up-to-date with tetanus. Also have a superficial laceration to fourth middle phalanx. Occurred: just prior to arrival Method of Injury: other Quality: sharpness Severity of Pain-Max: moderate Severity of Pain-Current: moderate Extremities Pain Location: 5th finger: right Modifying Factors: Improves With: immobilization. Worsens With: movement Associated Symptoms: none Allergies/Adverse Reactions: No Known Drug Allergies Allergy (Verified 07/15/21 06:46) Home Medications: Aripiprazole 10 mg [Abilify 10 MG] 10 mg PO DAILY 05/11/21 [History] Buprenorphine HCl/Naloxone HCl [Buprenorphine-Nalox 8-2 mg Tab] 1 tab PO BID 07/15/21 [History] Hx Tetanus, Diphtheria Vaccination/Date Given: Yes Hx Influenza Vaccination/Date Given: Yes Hx Pneumococcal Vaccination/Date Given: No Immunizations Up to Date: Yes Travel Risk - International Travel Have you traveled outside of the country in past 3 weeks: No - Coronavirus Screening Are you exhibiting any of the following symptoms?: No Close contact with a COVID-19 positive Pt in past 14-21 Days: No - Vaccine Status Have you recieved a Covid-19 vaccination: Yes 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: [employer] - Review of Systems Constitutional: No Symptoms Ears, Nose, & Throat: No Symptoms Respiratory: No Symptoms Cardiac: No Symptoms Abdominal/Gastrointestinal: No Symptoms Genitourinary Symptoms: No Symptoms Musculoskeletal: Injury Skin: Skin Lesions Neurological: No Symptoms Endocrine: No Symptoms Hematologic/Lymphatic: No Symptoms Immunological/Allergic: No Symptoms - Past Medical History Pertinent Past Medical History: Yes Psycho-Social History: Anxiety, Depression Other Medical History: Kidney stones - Past Surgical History Past Surgical History: No - Social History Smoking Status: Current every day smoker How long have you smoked: 20 years Exposure to second hand smoke: No Drug Use: marijuana Patient Lives Alone: No - Nursing Vital Signs Nursing Vital Signs: Initial Vital Signs Temperature 98 F 07/15/21 06:48 Pulse Rate 87 07/15/21 06:48 Respiratory Rate 20 07/15/21 06:48 Blood Pressure 121/78 07/15/21 06:48 O2 Sat by Pulse Oximetry 98 07/15/21 06:48 Pain Scale Pain Intensity 7 - Physical Exam General Appearance: no apparent distress, alert Neck Exam: normal inspection, full range of motion Cardiovascular/Respiratory Exam: normal breath sounds, regular rate/rhythm Shoulder Exam: normal inspection Elbow/Forearm Exam: normal inspection Wrist Exam: normal inspection Hand Exam: laceration (2.5 cm laceration right fifth digit metacarpophalangeal joint lateral aspect with extension into webspace. Visible tendon laceration. Restricted flexion extension/adduction. Grossly intact distal sensations.), limited ROM Neuro/Tendon Exam: normal sensation, tendon function deficit, tendon injury vis ualized Mental Status Exam: alert, oriented x 3, cooperative Skin Exam: normal color SpO2 Interpretation: normal SpO2: 98 O2 Delivery: Room Air Procedures - Laceration/Wound Repair Right Dorsal Finger Time of Procedure: 07:49 Wound Location: Right Wound Length (cm): 3 Wound's Depth, Shape: into muscle, irregular Wound Explored: clean Irrigated: Yes Hibiclens Prep: Yes Anesthesia: 1% Lidocaine Volume Anesthetic (ccs): 7 Wound Debrided: moderate Wound Repaired With: sutures, Steri-strips, Dermabond Suture Size/Type: 4-0 Number of Sutures: 6 Layer Closure?: No Ordered Tests: Active Orders 24 hr Category Date Time Status HAND (MINIMUM 3 VIEWS) Stat Exams 07/15/21 08:03 Completed Medication Summary Discontinued Medications Generic Name Dose Route Start Last Admin Trade Name Freq PRN Reason Stop Dose Admin Cephalexin HCl 500 mg 07/15/21 07:40 07/15/21 07:44 Cephalexin 500 Mg Capsule PO 07/15/21 07:41 500 mg STAT ONE Administration Cephalexin HCl Confirm 07/15/21 07:44 Cephalexin Mh500 Mg Capsule Administered 07/15/21 07:45 Dose 500 mg .ROUTE .STK-MED ONE Ketorolac Tromethamine 30 mg 07/15/21 08:21 07/15/21 08:28 Ketorolac Tromethamine 30 Mg/Ml Inj IM 07/15/21 08:22 30 mg STAT ONE Administration Ketorolac Tromethamine Confirm 07/15/21 08:27 Ketorolac Tromethamine 30 Mg/Ml Inj Administered 07/15/21 08:28 Dose 30 mg .ROUTE .STK-MED ONE - Progress Progress: improved Progress Note: 07/15/21 08:20 Webspace/fifth digit laceration is repaired with suture and laceration fourth digit with Steri-Strips/Dermabond. Discussed with Dr. Puri hand surgery Lisha Rendon as patient has tendon laceration/deficit needs to be fixed surgically. Patient would be seen today at [facility] by his nurse practitioner and will be scheduled for surgery tomorrow. Given a dose of Keflex given here. X-ray is done and here and reviewed by me did not reveal any obvious fracture dislocation at the right hand. Discussed signs symptoms of worsening needing return to ER which he seems understanding. Discussed with : Other Counseled pt/family regarding: diagnosis, need for follow-up, rad results - Departure Departure Disposition: Home Clinical Impression: Hand laceration involving tendon Condition: Stable Critical Care Time: No Referrals: ASHLEY FONTANEZ [Primary Care Provider] - Follow up/PCP as directed TINO AMADOR MD [NON-STAFF PHY W/O PRIVILEGES] - Follow up/PCP as directed (As scheduled) Instructions: Laceration Repair With Glue (DC), Laceration Repair With Stitches (DC) Additional Instructions: Go to [facility] clinic today after discharge from here. Take Tylenol/ibuprofen as needed. Keep it elevated. Return to ER for increasing pain swelling, numbness tingling or bluish discoloration of the finger. Prescriptions: Ibuprofen 600 mg PO Q6HPRN PRN 10 Days #20 tablet PRN Reason: Pain Cephalexin Mh 500 mg [Keflex 500 mg] 500 mg PO TID #21 cap
[2021-07-15] MEDS ORDERED: TORAdol 30 mg Injection IM ONE (08:21)
[2021-07-15] MEDS ORDERED: TORAdol 30 mg Injection ONE (08:27)
--- NOTE | 2021-07-15 09:13 | XRAY ---
Indication: 5th finger laceration. Comparison: None 3 view left hand demonstrates mild soft tissue swelling base 5th finger. No other bony, articular, or soft tissue abnormalities.
== END 2021-07-15 08:32 | disposition home or self-care (01) ==
LOC: ED 06:42
DX: S61.216A Laceration without foreign body of right little finger without damage to nail, initial encounter (principal); S61.214A Laceration without foreign body of right ring finger without damage to nail, initial encounter; S66.326A Laceration of extensor muscle, fascia and tendon of right little finger at wrist and hand level, initial encounter; S66.126A Laceration of flexor muscle, fascia and tendon of right little finger at wrist and hand level, initial encounter; W31.9XXA Contact with unspecified machinery, initial encounter; Y99.0 Civilian activity done for income or pay; M79.644 Pain in right finger(s); Z72.0 Tobacco use; Z79.891 Long term (current) use of opiate analgesic; Z79.899 Other long term (current) drug therapy
CPT/HCPCS: 12002; 73130; 96372; 99284; J1885; A9270-GY